=== PATIENT | female | born 1960 | race Caucasian/White ===

== ENCOUNTER → 2016-10-25 | Outpatient (CLI) | payer OTHER ==
--- NOTE | 2016-10-25 15:14 | XR ---
EXAMINATION TYPE: XR lumbosacral spine min 4V DATE OF EXAM: 10/25/2016 CLINICAL HISTORY: Chronic low back pain TECHNIQUE: Frontal, lateral, and oblique images of the lumbar spine are obtained. COMPARISON: None FINDINGS: Osseous structures are demineralized which is noted to lower radiographic sensitivity There are 5 lumbar type vertebral bodies identified. The lumbar spine shows satisfactory alignment withou t evidence of acute fracture or dislocation. There is moderate disc space narrowing L5-S1 level. Ther e is facet arthropathy in the lower lumbar levels. Vertebral body heights and disk space heights othe rwise are within normal limits. The oblique images appear within normal limits. The overlying soft tissue appears unremarkable. IMPRESSION: Demineralization with moderate disc space narrowing L5-S1 level and facet arthropathy low er lumbar levels noted.
== END | disposition home or self-care (01) ==
LOC: RADXRYALE 14:03
PROVIDERS: ATTEND Internal Medicine
DX: M48.07 Spinal stenosis, lumbosacral region (principal); M46.07 Spinal enthesopathy, lumbosacral region; M54.11 Radiculopathy, occipito-atlanto-axial region
CPT/HCPCS: 72110

== ENCOUNTER → 2018-06-11 | Outpatient (CLI) | payer OTHER ==
--- NOTE | 2018-06-11 13:21 | XR ---
EXAMINATION TYPE: XR foot complete RT DATE OF EXAM: 06/11/2018 CLINICAL HISTORY: Left foot pain and bruising after fall injury yesterday. TECHNIQUE: Frontal, lateral, and oblique images of the left foot are obtained. COMPARISON: None FINDINGS: Osseous structures are demineralized. There is acute oblique displaced fracture through mid shaft of left fifth metatarsal distracted roughly 4 mm. There is slight medial displacement distal f racture fragment. Prominent hallux valgus deformity first metatarsophalangeal joint is seen. Marked f lexion second through fifth toes is noted. Overlying soft tissue is unremarkable. IMPRESSION: There is acute displaced fracture mid shaft of left fifth metatarsal.
== END | disposition home or self-care (01) ==
LOC: RADXRYALE 12:34
PROVIDERS: ATTEND Internal Medicine
DX: S92.352A Displaced fracture of fifth metatarsal bone, left foot, initial encounter for closed fracture (principal)

== ENCOUNTER → 2018-12-23 | Outpatient (CLI) | payer OTHER ==
--- NOTE | 2018-12-23 16:54 | XR ---
EXAMINATION TYPE: XR lumbosacral spine min 4V DATE OF EXAM: 12/23/2018 CLINICAL HISTORY: Right hip, back, and sacroiliac joint pain TECHNIQUE: Frontal, lateral, and oblique images of the lumbar spine are obtained. COMPARISON: None FINDINGS: There is diffuse osseous demineralization. There are 5 lumbar type vertebral bodies identi fied. The lumbar spine shows satisfactory alignment without evidence of acute fracture or dislocatio n. Vertebral body heights and disk space heights are within normal limits. Mild multilevel facet art hropathy from L4 through S1. Very small anterior osteophytes are seen throughout the lumbar spine. Th e oblique images appear within normal limits. The overlying soft tissue appears unremarkable. IMPRESSION: No acute fracture or dislocation is seen in the lumbar spine. 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
== END | disposition home or self-care (01) ==
LOC: RADXRYALE 12:57
PROVIDERS: ATTEND Internal Medicine
DX: M51.36 Other intervertebral disc degeneration, lumbar region (principal)
CPT/HCPCS: 72110